=== PATIENT | female | born 1995 | race American Indian/Alaskan Native ===

== ENCOUNTER 2017-10-30 17:11 | Emergency (ER) | payer OTHER, MEDICAID ==
[2017-10-30 17:22] VITALS: BP 101/69; PULSE 76; RESP 20; TEMP 99.3; O2SAT 99
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
== END 2017-10-30 20:01 | disposition home or self-care (01) ==
LOC: C.ER 17:11
DX: S16.1XXA Strain of muscle, fascia and tendon at neck level, initial encounter (principal); S33.5XXA Sprain of ligaments of lumbar spine, initial encounter; V49.40XA Driver injured in collision with unspecified motor vehicles in traffic accident, initial encounter
CPT/HCPCS: 96372; 99284; J1885